=== PATIENT | male | born 1930 | race Caucasian/White ===

== ENCOUNTER → 2016-11-01 | Outpatient (CLI) | payer MEDICAID ==
[2016-11-01 11:19] LABS: Basophils # (A) 0.1 k/uL (0-0.2); Basophils % (A) 1 %; CH 31.8; CHCM 33.6; Eosinophils # (A) 0.2 k/uL (0-0.7); Eosinophils % (A) 5 %; HCT 44.9 % (39.0-53.0); HDW 2.54; HGB 15.5 gm/dL (13.0-17.5); Luc # (Auto) 0.18; Luc % (Auto) 4; Lymphocytes # (A) 1.6 k/uL (1.0-4.8); Lymphocytes % (A) 37 %; MCH 32.7 pg (25.0-35.0); MCHC 34.4 g/dL (31.0-37.0); Mean Platelet Volume 7.2; Monocytes # (A) 0.4 k/uL (0-1.0); Monocytes % (A) 9 %; Neutrophils # (A) 1.9 k/uL (1.3-7.7); Neutrophils % (A) 44 %; RBC 4.73 m/uL (4.30-5.90); RDW 12.9 % (11.5-15.5); WBC 4.3 k/uL (3.8-10.6); WBC (Perox) 4.07
[2016-11-01 11:21] LABS: ALT 30 U/L (21-72); AST 28 U/L (17-59); Alkaline Phosphatase 44 U/L (38-126); Anion Gap 12 mmol/L; Blood Urea Nitrogen 24 mg/dL (9-20); Calcium 9.5 mg/dL (8.4-10.2); Carbon Dioxide 30 mmol/L (22-30); Chloride 102 mmol/L (98-107); Cholesterol 211 mg/dL (<200); Glucose 99 mg/dL (74-99); HDL Cholesterol 65 mg/dL (40-60); Non-African American GFR(MDRD) >60 (>60 ml/min/1.73 sqM); Potassium 5.1 mmol/L (3.5-5.1); Sodium 144 mmol/L (137-145); Total Bilirubin 1.1 mg/dL (0.2-1.3); Total Protein 7.7 g/dL (6.3-8.2); Triglycerides 83 mg/dL (<150)
[2016-11-01 11:48] LABS: Prostate Specific Antigen 6.07 ng/mL (0.00-4.00)
== END ==
LOC: LABWHC1 10:17
PROVIDERS: ATTEND Internal Medicine
DX: Z00.01 Encounter for general adult medical examination with abnormal findings (principal); E03.9 Hypothyroidism, unspecified; N40.1 Benign prostatic hyperplasia with lower urinary tract symptoms; E03.0 Congenital hypothyroidism with diffuse goiter
CPT/HCPCS: 36415; 80053; 80061; 84153; 84439; 84443; 84481; 85025

== ENCOUNTER → 2016-11-13 | Outpatient (CLI) | payer MEDICAID ==
--- NOTE | 2016-11-14 09:42 | ECHOF ---
Referral Reason:R01.0 Benign and innocent cardiac murmurs MEASUREMENTS -------- HEIGHT: 172.7 cm WEIGHT: 74.8 kg BP: 144/71 RVIDd: 3.9 cm (< 3.3) IVSd: 1.2 cm (0.6 - 1.1) LVIDd: 3.4 cm (3.9 - 5.3) LVPWd: 1.2 cm (0.6 - 1.1) IVSs: 1.7 cm LVIDs: 2.6 cm LVPWs: 1.5 cm LA Diam: 3.7 cm (2.7 - 3.8) LAESV Index (A-L): 19.83 ml/m Ao Diam: 3.1 cm (2.0 - 3.7) AV Cusp: 2.0 cm (1.5 - 2.6) LA Diam: 3.6 cm (2.7 - 3.8) MV EXCURSION: 13.189 mm (> 18.000) MV EF SLOPE: 40 mm/s (70 - 150) EPSS: 0.3 cm MV E Willis: 0.64 m/s MV DecT: 318 ms MV A Willis: 0.82 m/s MV E/A Ratio: 0.79 RAP: 5.00 mmHg RVSP: 38.41 mmHg FINDINGS -------- Sinus rhythm with extra systolic beats. This was a technically good study. There is borderline concentric left ventricular hypertrophy. Overall left ventricular systolic function is normal with, an EF between 55 - 60 %. The right ventricle is mild to moderately enlarged. Normal LA size by volume 22+/-6 ml/m2. The right atrium is normal in size. Aortic valve is trileaflet and is mildly thickened. There is [id number] aortic regurgitation. The mitral valve leaflets are mildly thickened. Mild mitral annular calcification present. Riqh-ga-xrzgfygy mitral regurgitation is present. Mild tricuspid regurgitation present. There is mild pulmonary hypertension. The right ventricular systolic pressure, as measured by Doppler, is 38.41mmHg. Moderate pulmonic regurgitation. 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 Normal inferior vena cava with normal inspiratory collapse consistent with estimated right atrial pressure of 5 mmHg. Echo free space may represent effusion or a pericardial fat pad. CONCLUSIONS -------- 1. Sinus rhythm with extra systolic beats. 2. The mitral valve leaflets are mildly thickened. 3. Mild mitral annular calcification present. 4. Ukfy-bn-namkjgox mitral regurgitation is present. 5. Mild tricuspid regurgitation present. 6. There is mild pulmonary hypertension. 7. The right ventricular systolic pressure, as measured by Doppler, is 38.41mmHg. 8. Moderate pulmonic regurgitation. 9. 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 10. Normal inferior vena cava with normal inspiratory collapse consistent with estimated right atrial pressure of 5 mmHg. 11. Echo free space may represent effusion or a pericardial fat pad. 12. This was a technically good study. 13. There is borderline concentric left ventricular hypertrophy. 14. Overall left ventricular systolic function is normal with, an EF between 55 - 60 %. 15. The right ventricle is mild to moderately enlarged. 16. Normal LA size by volume 22+/-6 ml/m2. 17. The right atrium is normal in size. 18. Aortic valve is trileaflet and is mildly thickened. 19. There is [id number]-[id number] aortic regurgitation. CONTINUITY MANAGER: Carmen Finnegan RDCS
== END | disposition home or self-care (01) ==
LOC: RADECHMAIN 16:27
PROVIDERS: ATTEND Internal Medicine
DX: I35.1 Nonrheumatic aortic (valve) insufficiency (principal); I51.7 Cardiomegaly; I34.0 Nonrheumatic mitral (valve) insufficiency; I27.2 Other secondary pulmonary hypertension; R01.0 Benign and innocent cardiac murmurs
CPT/HCPCS: 93306

== ENCOUNTER → 2018-05-18 | Outpatient (CLI) | payer MEDICAID ==
--- NOTE | 2018-05-18 14:05 | XR ---
EXAMINATION TYPE: XR ankle limited LT , 2 VIEWS DATE OF EXAM ORDERED: 05/18/2018 HISTORY: M25.572 ankle pain. COMPARISON: None. FINDINGS: There is a healed fracture of the distal left fibula. No definite acute fracture or disloc ation is seen. There are both plantar and calcaneal spurs. IMPRESSION: 1. NO ACUTE OSSEOUS LESION. 2. EVIDENCE OF OLD TRAUMA.
== END ==
LOC: RADXRMAIN 13:10
PROVIDERS: ATTEND Internal Medicine
DX: M25.572 Pain in left ankle and joints of left foot (principal)